=== PATIENT | female | born 1955 | race Caucasian/White ===

== ENCOUNTER → 2016-10-14 | Outpatient (CLI) | payer BC ==
[~2016-10-14] MED LIST: ALLEGRA PO; CALC-22 PO; GLUC-147 PO; IBAN150T3 PO; MEGA RED PO; NORE5TAB5 PO; [UNRECOGNIZED DRUG - CODE] SL; [UNRECOGNIZED DRUG - CODE] TD
== END ==
LOC: WC.BC 14:59
DX: Z12.31 Encounter for screening mammogram for malignant neoplasm of breast (principal); N64.59 Other signs and symptoms in breast
CPT/HCPCS: 77063; G0202

== ENCOUNTER → 2016-11-03 | Outpatient (CLI) | payer BC | LOC: IMA 10:49 | PROVIDERS: ATTEND Nurse Practitioner Obstetrics & Gynecology | DX: M85.88 Other specified disorders of bone density and structure, other site (principal); E28.39 Other primary ovarian failure; N95.8 Other specified menopausal and perimenopausal disorders; Z82.62 Family history of osteoporosis ==